=== PATIENT | male | born 1965 | race Caucasian/White ===

== ENCOUNTER 2019-02-27 08:48 | Day surgery (SDC) | payer BC ==
[2019-02-27] MEDS: BUPIVACAINE 0.25% (MPF) 30 ML INJ
[~2019-02-27 08:48] MED LIST: CEFAZOLIN 2 GM/50 ML (PMX) 50 ML IVPB; DESFLURANE 15 MIN; LIDOCAINE 2% (SDV) 5 ML INJ
[2019-02-27 09:32] LABS: WHITE BLOOD COUNT 6.5 10^3/ul (4.8-10.8)
[2019-02-27 09:32] LABS: ADD MAN DIFF? NO; BASOPHIL # 0.1 10^3/ul (0.0-0.1); BASOPHILS % 0.8 % (0.0-2.0); EOSINOPHILS # 0.2 10^3/ul (0.0-0.5); EOSINOPHILS % 3.6 % (0.0-7.0); HEMATOCRIT 39.5 % (42.0-52.0); HEMOGLOBIN 13.4 g/dl (14.0-18.0); LYMPHOCYTES # 1.6 10^3/ul (0.8-2.9); MEAN CORPUSCULAR HEMOGLOBIN 30.7 pg (29.0-33.0); MEAN CORPUSCULAR HGB CONC 33.9 g/dl (32.0-37.0); MEAN CORPUSCULAR VOLUME 90.6 fl (82.0-101.0); MEAN PLATELET VOLUME 10.3 fl (7.4-10.4); MONOCYTE # 0.5 10^3/ul (0.3-0.9); MONOCYTES % 8.3 % (0.0-11.0); NEUTROPHIL # 4.1 10^3/ul (1.6-7.5); PLATELET COUNT 233 10^3/UL (140-415); RED BLOOD COUNT 4.36 10^6/ul (4.70-6.10); RED CELL DISTRIBUTION WIDTH 12.4 % (11.5-14.5)
[2019-02-27 09:53] LABS: ANION GAP 8 (5-13); BLOOD UREA NITROGEN 9 mg/dl (7-20); CALCIUM 8.9 mg/dl (8.4-10.2); CARBON DIOXIDE 27 mmol/L (21-31); CHLORIDE 106 mmol/L (97-110); CREATININE 1.08 mg/dl (0.61-1.24); Estimated GFR > 60 mL/min (>60); GLUCOSE 94 mg/dl (70-220); POTASSIUM 4.2 mmol/L (3.5-5.1); SODIUM 141 mmol/L (135-144)
[2019-02-27] MEDS ORDERED: FENTAnyl 50 MCG/ML VIAL (10:55)
[2019-02-27] MEDS ORDERED: FENTAnyl 50 MCG/ML VIAL IV (11:00)
[2019-02-27] MEDS ORDERED: METOCLOPRAMIDE 10 MG INJ IV (11:00)
[2019-02-27] MEDS ORDERED: DIPHENHYDRAMINE 50 MG INJ IV (11:00)
[2019-02-27] MEDS ORDERED: ALBUTEROL 0.083% (NEB) 2.5 MG/3 ML AMP HHN (11:00)
[2019-02-27] MEDS ORDERED: HYDROmorphONE 1 MG/5 ML IV SYRINGE IV (11:00)
[2019-02-27] MEDS ORDERED: BACITRACIN 0.9 GM OINT (12:37)
[2019-02-27] MEDS ORDERED: LIDOCAINE 100 MG SYRINGE (13:11)
[2019-02-27] MEDS ORDERED: GLYCOPYRROLATE 0.4 MG INJ (13:11)
[2019-02-27] MEDS ORDERED: ROCURONIUM 50 MG INJ (13:11)
[2019-02-27] MEDS ORDERED: NEOSTIGMINE 3 MG/3 ML SYRINGE (13:11)
[2019-02-27] MEDS ORDERED: CLINDAMYCIN 900 MG/D5W (PMX) 50 ML IVPB (13:11)
[2019-02-27] MEDS ORDERED: SUCCINYLCHOLINE CHLORIDE 100 MG/5 ML SYG IV (13:11)
[2019-02-27] MEDS ORDERED: PROPOFOL 20 ML (13:11)
[2019-02-27] MEDS: MEPERIDINE 25 MG INJ IV (13:30)
[2019-02-27] MEDS: HYDROmorphONE 1 MG/5 ML IV SYRINGE IV ×2 (13:30→13:54)
[2019-02-27] MEDS: ONDANSETRON 4 MG INJ IV (13:30)
[2019-02-27] MEDS: FENTAnyl 50 MCG/ML VIAL IV (13:55)
[2019-02-27] MEDS: OXYCODONE/ACETAMINOPHEN (5/325) TAB PO (15:10)
[2019-02-27] MEDS: HYDROmorphONE 1 MG/ML SYG IV (15:56)
[2019-02-27] MEDS ORDERED: ONDANSETRON 4 MG INJ IV (15:57)
[2019-02-27] MEDS: KETOROLAC 30 MG INJ IV (16:16)
== END 2019-02-27 17:43 | disposition home or self-care (01) ==
LOC: SDS 08:48
DX: S66.021A Laceration of long flexor muscle, fascia and tendon of right thumb at wrist and hand level, initial encounter (principal); S64.31XA Injury of digital nerve of right thumb, initial encounter; W25.XXXA Contact with sharp glass, initial encounter; Y99.8 Other external cause status
CPT/HCPCS: 26356; 80048; 85025; 93005